=== PATIENT | male | born 1950 | race Hispanic/Latino ===

== ENCOUNTER 2020-12-26 05:27 | Emergency (ER) | payer OTHER ==
[~2020-12-26] VITALS: Ht 172.7 cm; Wt 84.8 kg
[2020-12-26] MEDS ORDERED: NITROGLYCERIN 2% OINT 1 GM PKT TOP STA (05:31)
[2020-12-26] MEDS ORDERED: ASPIRIN 81 MG CHEW TAB PO STA (05:31)
[2020-12-26] MEDS ORDERED: IBUPROFEN 600 MG TAB PO STA (05:43)
[2020-12-26 05:51] LABS: BASOPHILS % 0.3 % (0.0-1.0); HEMATOCRIT 44.7 % (38.2-49.6); HEMOGLOBIN 15.1 g/dL (14.0-18.0); LYMPHOCYTES # (AUTO) 0.7 (1.0-3.2); LYMPHOCYTES % 6.8 % (18.0-39.1); MEAN CORPUSCULAR HEMOGLOBIN 32.5 pg (28-32); MEAN CORPUSCULAR HGB CONC 33.8 g/dL (31-35); MEAN CORPUSCULAR VOLUME 96.3 fL (81-99); MONOCYTES # (AUTO) 0.6 (0.2-0.8); MONOCYTES % 5.6 % (4.4-11.3); NEUTROPHILS % 86.9 % (38.7-80.0); PLATELET COUNT 198 x10e3/uL (140-360); RED BLOOD COUNT 4.64 x10e6/uL (4.3-5.7); RED CELL DISTRIBUTION WIDTH 12.1 % (11.7-14.4)
[2020-12-26 06:03] LABS: PARTIAL THROMBOPLASTIN TIME 26.6 seconds (23.8-35.5)
[2020-12-26 06:13] LABS: ALBUMIN 4.1 g/dL (3.5-5.0); ALBUMIN/GLOBULIN RATIO 1.2 (0.8-2.0); ANION GAP 17.8 mmol/L (8-16); CALCIUM 8.7 mg/dL (8.4-10.2); CREATININE, SERUM 0.94 mg/dL (0.72-1.25); POTASSIUM 3.8 mmol/L (3.5-5.1)
[2020-12-26 06:14] LABS: CREATINE KINASE MB 0.8 ng/mL (0-5.0)
[2020-12-26 06:48] VITALS: BP 123/66
[2020-12-26] MEDS ORDERED: OMEPRAZOLE40 MG PO (06:49)
== END 2020-12-26 06:58 | disposition home or self-care (01) ==
LOC: ER 05:32
DX: R07.9 Chest pain, unspecified (principal); I10 Essential (primary) hypertension
CPT/HCPCS: 36415; 71045; 80053; 82550; 82553; 83880; 84484; 85025; 85610; 85730; 93005; 99284

== ENCOUNTER 2021-06-27 23:48 | Inpatient (IN) | payer MEDICARE ==
[~2021-06-27] VITALS: Ht 170.2 cm; Wt 90.3 kg
[~2021-06-27 23:48] MED LIST: OMEPRAZOLE40 MG PO
[2021-06-28] VITALS (7 sets, daily range): BP systolic 117–138; BP diastolic 64–75
[2021-06-28 00:13] LABS: BASOPHILS # (AUTO) 0.1 (0.0-0.1); BASOPHILS % 0.6 % (0.0-1.0); EOSINOPHILS % 0.1 % (0.0-6.0); HEMATOCRIT 41.3 % (38.2-49.6); HEMOGLOBIN 14.3 g/dL (14.0-18.0); LYMPHOCYTES # (AUTO) 0.9 (1.0-3.2); LYMPHOCYTES % 5.4 % (18.0-39.1); MEAN CORPUSCULAR HEMOGLOBIN 32.1 pg (28-32); MEAN CORPUSCULAR HGB CONC 34.6 g/dL (31-35); MEAN CORPUSCULAR VOLUME 92.8 fL (81-99); MONOCYTES # (AUTO) 0.8 (0.2-0.8); MONOCYTES % 4.6 % (4.4-11.3); NEUTROPHILS # (AUTO) 14.5 (2.1-6.9); NEUTROPHILS % 88.9 % (38.7-80.0); PLATELET COUNT 101 x10e3/uL (140-360); RED BLOOD COUNT 4.45 x10e6/uL (4.3-5.7); RED CELL DISTRIBUTION WIDTH 12.6 % (11.7-14.4)
[2021-06-28] MEDS ORDERED: BELLADONNA ALK/PHENOBARBITAL 5 ML UDC PO ONE (00:15)
[2021-06-28] MEDS ORDERED: MAGNESIUM/ALUMINUM/SIMETHICONE 30 ML UDC PO ONE (00:15)
[2021-06-28] MEDS ORDERED: LIDOCAINE VISC 2% SOLN 15 ML UDC PO ONE (00:15)
[2021-06-28 00:27] LABS: AMYLASE 29 U/L (25-125); LIPASE 20 U/L (8-78)
[2021-06-28 00:31] LABS: ALBUMIN 2.8 g/dL (3.5-5.0); ALBUMIN/GLOBULIN RATIO 0.7 (0.8-2.0); ANION GAP 15.2 mmol/L (8-16); CALCIUM 8.5 mg/dL (8.4-10.2); CREATININE, SERUM 1.15 mg/dL (0.72-1.25); POTASSIUM 3.2 mmol/L (3.5-5.1)
[2021-06-28 00:37] LABS: CREATINE KINASE MB 0.4 ng/mL (0-5.0)
[2021-06-28] MEDS ORDERED: ACETAMINOPHEN 325 MG TAB PO ONE (01:30)
[2021-06-28] MEDS ORDERED: SODIUM CHLORIDE 0.9% 1000ML 1,000 ML IV ONE ×2 (01:30→01:45)
[2021-06-28] MEDS ORDERED: SODIUM CHLORIDE 0.9% 500ML 500 ML IV ONE (01:45)
[2021-06-28 02:14] LABS: CLARITY,URINE CLEAR (CLEAR); COLOR,URINE YELLOW (YELLOW); KETONES,URINE 1+ (NEGATIVE); LEUKOCYTE ESTERASE ,URINE NEGATIVE (NEGATIVE); NITRITE,URINE NEGATIVE (NEGATIVE); PROTEIN,URINE DIPSTICK TRACE (NEGATIVE); URINE UROBILINOGEN 0.2 mg/dL (0.2 - 1)
[2021-06-28 02:18] LABS: BACTERIA,URINE FEW /HPF; EPITHELIAL CELLS,URINE RARE /LPF; WBC,URINE (MAN) 0-5 /HPF (0-5)
[2021-06-28] MEDS ORDERED: ONDANSETRON HCL INJ 2MG/ML 2ML 2 MG/ML VIAL IV PRN (03:45)
[2021-06-28] MEDS: Morphine 4mg Syringe 4 MG/ML INJ IV PRN (04:24)
[2021-06-28] MEDS: SODIUM CHLORIDE 0.9% 1000ML 1,000 ML IV SCH ×3 (05:57→19:45)
[2021-06-28] MEDS ORDERED: IOPAMIDOL 370 MG/ML 100 ML INFUS..BTL INJ ONE (06:25)
[2021-06-28] MEDS ORDERED: POTASSIUM CHLORIDE 20MEQ/100ML 100 ML IV ONE (10:15)
[2021-06-28] MEDS ORDERED: POTASSIUM CHLORIDE 10MEQ/100ML 100 ML IV SCH (10:30)
[2021-06-28 10:34] LABS: CHOL/HDL RATIO 6.1 (3.9-4.7)
[2021-06-28] MEDS: POTASSIUM CHLORIDE IV SCH ×3 (10:41→13:49)
[2021-06-28] MEDS: SODIUM CHLORIDE 0.9% IV SCH ×3 (10:41→13:49)
[2021-06-28] MEDS ORDERED: GLUCAGON FOR INJ 1 MG VIAL ONE (11:54)
[2021-06-28] MEDS ORDERED: GLYCOPYRROLATE INJ 0.2 MG/ML VIAL ONE (11:54)
[2021-06-28] MEDS ORDERED: SUCCINYLCHOLINE CHLORIDE 20 MG/ML 10ML VIAL ONE (11:54)
[2021-06-28] MEDS ORDERED: PROPOFOL IV EMULSION 10 MG/ML 20 ML VIAL ONE (11:54)
[2021-06-28] MEDS ORDERED: LIDOCAINE HCL 2% LOCAL INJ 5 ML SDV VIAL INJ ONE (11:54)
[2021-06-28] MEDS ORDERED: POVIDONE IODINE 0.05% 0.05 % ML PO ONE (11:54)
[2021-06-28] MEDS: METRONIDAZOLE 500MG/NS 100ML 100 ML IV SCH ×3 (13:49→23:07)
[2021-06-28] MEDS ORDERED: ATENOLOL50 MG PO (13:52)
[2021-06-28] MEDS ORDERED: SIMVASTATIN40 MG PO (13:52)
[2021-06-28] MEDS ORDERED: FENTANYL CITRATE/PF 100MCG/2 ML INJ ONE (14:06)
[2021-06-28] MEDS ORDERED: INDOMETHACIN 50 MG SUPP.RECT RC ONE (15:01)
[2021-06-28] MEDS ORDERED: IOPAMIDOL 300MG/ML 50ML INFUS..BTL IV ONE (15:01)
[2021-06-28] MEDS ORDERED: LIDOCAINE HCL 4% 50 ML BTL ONE (15:01)
[2021-06-28] MEDS: FAMOTIDINE 20 MG/2 ML VIAL IV SCH (17:00)
[2021-06-28] MEDS: MELATONIN 3 MG TAB PO PRN (22:00)
[2021-06-29] VITALS (8 sets, daily range): BP systolic 130–157; BP diastolic 59–78
[2021-06-29] MEDS: SODIUM CHLORIDE 0.9% 1000ML 1,000 ML IV SCH ×3 (03:23→21:09)
[2021-06-29] MEDS: METRONIDAZOLE 500MG/NS 100ML 100 ML IV SCH ×3 (05:04→17:49)
[2021-06-29 06:47] LABS: BASOPHILS # (AUTO) 0.1 (0.0-0.1); BASOPHILS % 0.7 % (0.0-1.0); EOSINOPHILS # (AUTO) 0.1 (0.0-0.4); EOSINOPHILS % 0.7 % (0.0-6.0); HEMATOCRIT 34.6 % (38.2-49.6); HEMOGLOBIN 11.8 g/dL (14.0-18.0); LYMPHOCYTES # (AUTO) 1.1 (1.0-3.2); LYMPHOCYTES % 10.7 % (18.0-39.1); MEAN CORPUSCULAR HEMOGLOBIN 31.8 pg (28-32); MEAN CORPUSCULAR HGB CONC 34.1 g/dL (31-35); MEAN CORPUSCULAR VOLUME 93.3 fL (81-99); MONOCYTES # (AUTO) 1.2 (0.2-0.8); MONOCYTES % 12.2 % (4.4-11.3); NEUTROPHILS # (AUTO) 7.5 (2.1-6.9); NEUTROPHILS % 74.3 % (38.7-80.0); PLATELET COUNT 79 x10e3/uL (140-360); RED BLOOD COUNT 3.71 x10e6/uL (4.3-5.7); RED CELL DISTRIBUTION WIDTH 13.2 % (11.7-14.4)
[2021-06-29 07:29] LABS: ALBUMIN/GLOBULIN RATIO 0.6 (0.8-2.0); ANION GAP 13.3 mmol/L (8-16); CALCIUM 7.5 mg/dL (8.4-10.2); CREATININE, SERUM 0.8 mg/dL (0.72-1.25); POTASSIUM 3.3 mmol/L (3.5-5.1)
[2021-06-29] MEDS: FAMOTIDINE 20 MG/2 ML VIAL IV SCH ×2 (08:44→17:12)
[2021-06-29 10:09] LABS: INR 0.87; PROTHROMBIN TIME 12.6 seconds (11.9-14.5)
[2021-06-29] MEDS ORDERED: POTASSIUM CHLORIDE 20 MEQ TAB CR PO ONE (11:30)
[2021-06-29] MEDS: MELATONIN 3 MG TAB PO PRN (22:00)
[2021-06-30] VITALS (7 sets, daily range): BP systolic 137–165; BP diastolic 71–86
[2021-06-30] MEDS: METRONIDAZOLE 500MG/NS 100ML 100 ML IV SCH ×4 (00:15→17:00)
[2021-06-30] MEDS: SODIUM CHLORIDE 0.9% 1000ML 1,000 ML IV SCH ×3 (04:00→19:45)
[2021-06-30 06:00] LABS: ALBUMIN 2.2 g/dL (3.5-5.0); ALBUMIN/GLOBULIN RATIO 0.7 (0.8-2.0); ANION GAP 9.1 mmol/L (8-16); CALCIUM 7.7 mg/dL (8.4-10.2); CREATININE, SERUM 0.85 mg/dL (0.72-1.25); POTASSIUM 4.1 mmol/L (3.5-5.1)
[2021-06-30] MEDS: FAMOTIDINE 20 MG/2 ML VIAL IV SCH ×2 (08:51→17:45)
[2021-06-30] MEDS: MELATONIN 3 MG TAB PO PRN (22:08)
[2021-07-01] VITALS: BP 154/77
[2021-07-01] MEDS: SODIUM CHLORIDE 0.9% 1000ML 1,000 ML IV SCH ×3 (00:54→18:56)
[2021-07-01] MEDS: METRONIDAZOLE 500MG/NS 100ML 100 ML IV SCH ×5 (00:54→23:47)
[2021-07-01 04:00] VITALS: BP 168/78
[2021-07-01 08:00] VITALS: BP 148/76
[2021-07-01 08:19] VITALS: BP 148/76
[2021-07-01] MEDS: FAMOTIDINE 20 MG/2 ML VIAL IV SCH ×2 (09:06→17:46)
[2021-07-01 11:56] VITALS: BP 165/85
[2021-07-01] MEDS ORDERED: FENTANYL CITRATE/PF 100MCG/2 ML INJ ONE (12:38)
[2021-07-01] MEDS ORDERED: MIDAZOLAM HCL 2 MG/2 ML VIAL ONE (12:38)
[2021-07-01] MEDS ORDERED: DEXAMETHASONE SOD PHOS INJ 4 MG/ML SDV ONE (13:24)
[2021-07-01] MEDS ORDERED: PROPOFOL IV EMULSION 10 MG/ML 20 ML VIAL ONE (13:24)
[2021-07-01] MEDS ORDERED: ROCURONIUM BROMIDE 10 MG/ML 5ML VIAL IV ONE (13:24)
[2021-07-01] MEDS ORDERED: LIDOCAINE HCL 2% LOCAL INJ 5 ML SDV VIAL INJ ONE (13:24)
[2021-07-01] MEDS ORDERED: ONDANSETRON HCL INJ 2MG/ML 2ML 2 MG/ML VIAL ONE (13:24)
[2021-07-01] MEDS ORDERED: POVIDONE IODINE 0.05% 0.05 % ML PO ONE (13:24)
[2021-07-01] MEDS ORDERED: SEVOFLURANE INHAL SOLN 250 ML PEN BTL ONE (13:24)
[2021-07-01] MEDS ORDERED: BUPIVACAINE 0.25% 30ML SDV ONE (15:11)
[2021-07-01] MEDS ORDERED: ACETAMINOPHEN 1000 MG/100 ML 100 ML IV ONE (15:13)
[2021-07-01] MEDS ORDERED: IOPAMIDOL 300MG/ML 50ML INFUS..BTL IV ONE ×2 (15:15→15:30)
[2021-07-01] MEDS ORDERED: GLUCAGON FOR INJ 1 MG VIAL ONE ×2 (15:30→15:31)
[2021-07-01 20:00] VITALS: BP 157/74
[2021-07-01] MEDS: Morphine 4mg Syringe 4 MG/ML INJ IV PRN (20:49)
[2021-07-02] VITALS: BP 161/74
[2021-07-02] MEDS: SODIUM CHLORIDE 0.9% 1000ML 1,000 ML IV SCH ×3 (04:01→21:47)
[2021-07-02 04:51] VITALS: BP 161/74
[2021-07-02] MEDS: METRONIDAZOLE 500MG/NS 100ML 100 ML IV SCH ×3 (05:36→18:00)
[2021-07-02 05:42] LABS: ALBUMIN 2.3 g/dL (3.5-5.0); ALBUMIN/GLOBULIN RATIO 0.6 (0.8-2.0); ANION GAP 15.1 mmol/L (8-16); CALCIUM 7.5 mg/dL (8.4-10.2); CREATININE, SERUM 0.85 mg/dL (0.72-1.25); POTASSIUM 4.1 mmol/L (3.5-5.1)
[2021-07-02 08:00] VITALS: BP 149/67
[2021-07-02] MEDS ORDERED: ONDANSETRON ODT4 MG PO (09:13)
[2021-07-02] MEDS ORDERED: CEPHALEXIN500 MG PO (09:13)
[2021-07-02] MEDS ORDERED: ONDANSETRON HCL 4 MG ORAL DISINTEGRATING TAB PO PRN (14:30)
[2021-07-02 20:00] VITALS: BP 149/71
[2021-07-03 00:11] VITALS: BP 150/76
[2021-07-03] MEDS: METRONIDAZOLE 500MG/NS 100ML 100 ML IV SCH ×2 (00:23→05:15)
[2021-07-03 01:02] VITALS: BP 150/76
[2021-07-03] MEDS: Morphine 4mg Syringe 4 MG/ML INJ IV PRN (01:15)
[2021-07-03 04:00] VITALS: BP 157/79
[2021-07-03] MEDS: SODIUM CHLORIDE 0.9% 1000ML 1,000 ML IV SCH ×2 (05:56→11:45)
[2021-07-03] MEDS ORDERED: METRONIDAZOLE500 MG PO (06:41)
[2021-07-03 07:37] LABS: BASOPHILS # (AUTO) 0.1 (0.0-0.1); BASOPHILS % 0.6 % (0.0-1.0); EOSINOPHILS # (AUTO) 0.1 (0.0-0.4); EOSINOPHILS % 1.2 % (0.0-6.0); HEMATOCRIT 34.7 % (38.2-49.6); HEMOGLOBIN 11.9 g/dL (14.0-18.0); LYMPHOCYTES # (AUTO) 1.6 (1.0-3.2); MEAN CORPUSCULAR HEMOGLOBIN 32.4 pg (28-32); MEAN CORPUSCULAR HGB CONC 34.3 g/dL (31-35); MEAN CORPUSCULAR VOLUME 94.6 fL (81-99); MONOCYTES # (AUTO) 0.8 (0.2-0.8); NEUTROPHILS # (AUTO) 6.8 (2.1-6.9); NEUTROPHILS % 68.9 % (38.7-80.0); PLATELET COUNT 234 x10e3/uL (140-360); RED BLOOD COUNT 3.67 x10e6/uL (4.3-5.7); RED CELL DISTRIBUTION WIDTH 13.6 % (11.7-14.4)
[2021-07-03 08:00] VITALS: BP 166/75
[2021-07-03 08:02] LABS: ALBUMIN 2.2 g/dL (3.5-5.0); ANION GAP 13.5 mmol/L (8-16); BILIRUBIN,DIRECT 0.7 mg/dL (0.0-0.5); CALCIUM 7.2 mg/dL (8.4-10.2); CREATININE, SERUM 0.72 mg/dL (0.72-1.25); POTASSIUM 3.5 mmol/L (3.5-5.1)
[2021-07-03] MEDS ORDERED: METRONIDAZOLE 500 MG TAB PO SCH (12:45)
[2021-07-03] MEDS ORDERED: PANTOPRAZOLE SOD 40 MG TABEC PO SCH (16:30)
== END 2021-07-03 15:13 | disposition home or self-care (01) | DRG 854 ==
LOC: ER 06-28 → ERHOLD 06-28 03:49 → MED/SURG2 06-28 05:37
PROVIDERS: ADMIT Internal Medicine; ATTEND Internal Medicine
PROC: 0FJD8ZZ Inspection of Pancreatic Duct, Via Natural or Artificial Opening Endoscopic (ICD-10-PCS; 2021-06-28)
PROC: 0FC94ZZ Extirpation of Matter from Common Bile Duct, Percutaneous Endoscopic Approach (ICD-10-PCS; 2021-07-01)
PROC: 0F794ZZ Dilation of Common Bile Duct, Percutaneous Endoscopic Approach (ICD-10-PCS; 2021-07-01)
PROC: 0FT44ZZ Resection of Gallbladder, Percutaneous Endoscopic Approach (ICD-10-PCS; principal; 2021-07-01 14:30)
DX: R78.81 Bacteremia (principal); K80.42 Calculus of bile duct with acute cholecystitis without obstruction; I10 Essential (primary) hypertension; K21.9 Gastro-esophageal reflux disease without esophagitis; E78.5 Hyperlipidemia, unspecified; E78.00 Pure hypercholesterolemia, unspecified; F17.210 Nicotine dependence, cigarettes, uncomplicated; E87.6 Hypokalemia; F10.10 Alcohol abuse, uncomplicated; B96.20 Unspecified Escherichia coli [E. coli] as the cause of diseases classified elsewhere; K57.10 Diverticulosis of small intestine without perforation or abscess without bleeding; Z20.822 Contact with and (suspected) exposure to COVID-19
CPT/HCPCS: 36415; 43260; 71045; 74177; 74181; 74300; 76705; 80048; 80053; 80061; 80076; 81001; 82150; 82550; 82553; 83036; 83605; 83690; 84132; 84484; 85025; 85610; 87040; 87071; 87186; 87205; 88304; 93005; 96361; 99284; C1713; J0330; J0694; J1100; J1610; J2001; J2250; J2270; J2405; J2543; J3010; J7030; J7040; Q9967; U0002

== ENCOUNTER 2024-08-11 06:48 | Emergency (ER) | payer MEDICARE ==
[~2024-08-11] VITALS: Ht 172.7 cm; Wt 90.7 kg
[~2024-08-11 06:48] MED LIST changes: +ATENOLOL50 MG PO; +CEPHALEXIN500 MG PO; +METRONIDAZOLE500 MG PO; +ONDANSETRON ODT4 MG PO; +SIMVASTATIN40 MG PO
[2024-08-11 06:50] VITALS: TEMP 98.1
[2024-08-11 07:39] LABS: BASOPHILS % 0.4 % (0.0-1.0); EOSINOPHILS # (AUTO) 0.2 (0.0-0.4); EOSINOPHILS % 1.6 % (0.0-6.0); HEMATOCRIT 42.6 % (38.2-49.6); HEMOGLOBIN 14.8 g/dL (14.0-18.0); LYMPHOCYTES # (AUTO) 1.9 (1.0-3.2); LYMPHOCYTES % 18.6 % (18.0-39.1); MEAN CORPUSCULAR HEMOGLOBIN 31.6 pg (28-32); MEAN CORPUSCULAR HGB CONC 34.7 g/dL (31-35); MEAN CORPUSCULAR VOLUME 90.8 fL (81-99); MONOCYTES # (AUTO) 1.2 (0.2-0.8); MONOCYTES % 11.7 % (4.4-11.3); NEUTROPHILS # (AUTO) 6.8 (2.1-6.9); NEUTROPHILS % 66.8 % (38.7-80.0); PLATELET COUNT 281 x10e3/uL (140-360); RED BLOOD COUNT 4.69 x10e6/uL (4.3-5.7); RED CELL DISTRIBUTION WIDTH 12.1 % (11.7-14.4); WHITE BLOOD COUNT 10.15 x10e3/uL (4.8-10.8)
[2024-08-11 07:51] LABS: ALANINE AMINOTRANSFERASE 45 IU/L (0-55); ALBUMIN 2.9 g/dL (3.5-5.0); ALBUMIN/GLOBULIN RATIO 0.6 (0.8-2.0); ALKALINE PHOSPHATASE 124 IU/L (40-150); ANION GAP 20.4 mmol/L (8-16); BLOOD UREA NITROGEN 15 mg/dL (7-26); BUN/CREATININE RATIO 15 (6-25); CALCIUM 8.9 mg/dL (8.4-10.2); CARBON DIOXIDE 18 mmol/L (22-29); CHLORIDE 97 mmol/L (98-107); EST GLOMERULAR FILTRATION RATE 79 ML/MIN (>=60); GLUCOSE 127 mg/dL (74-118); MAGNESIUM 2.5 MG/DL (1.3-2.1); POTASSIUM 3.4 mmol/L (3.5-5.1); SODIUM 132 mmol/L (136-145); TOTAL PROTEIN 7.9 g/dL (6.5-8.1)
[2024-08-11 07:58] LABS: TROPONIN I < 0.001 ng/mL (0-0.300)
[2024-08-11] MEDS: SODIUM CHLORIDE 0.9% 1000ML 1,000 ML IV STA (08:04)
[2024-08-11] MEDS: ONDANSETRON HCL INJ 2MG/ML 2ML 2 MG/ML VIAL IV STA (08:06)
[2024-08-11] MEDS: HYDROCODONE/APAP 5MG-325MG TAB PO ONE (08:08)
[2024-08-11] MEDS: ACETAMINOPHEN 325 MG TAB PO ONE (08:08)
[2024-08-11 08:22] LABS: CLARITY,URINE CLEAR (CLEAR); COLOR,URINE YELLOW (YELLOW); GLUCOSE, URINE NEGATIVE (NEGATIVE); KETONES,URINE 1+ (NEGATIVE); LEUKOCYTE ESTERASE ,URINE NEGATIVE (NEGATIVE); NITRITE,URINE NEGATIVE (NEGATIVE); PH,URINE 6 (5 - 7); PROTEIN,URINE DIPSTICK NEGATIVE (NEGATIVE)
[2024-08-11 08:23] LABS: BILIRUBIN,URINE NEGATIVE (NEGATIVE)
[2024-08-11 08:34] LABS: BACTERIA,URINE MODERATE /HPF; EPITHELIAL CELLS,URINE RARE /LPF
[2024-08-11] MEDS ORDERED: ONDANSETRON ODT4 MG PO (08:43)
[2024-08-11] MEDS ORDERED: CEFDINIR300 MG PO (08:43)
[2024-08-11 08:45] VITALS: PULSE 66; RESP 16; O2SAT 99
== END 2024-08-11 09:00 | disposition home or self-care (01) ==
LOC: ER 06:53
DX: R11.0 Nausea (principal); B34.9 Viral infection, unspecified; N39.0 Urinary tract infection, site not specified; E86.0 Dehydration; R53.83 Other fatigue; I10 Essential (primary) hypertension; E78.5 Hyperlipidemia, unspecified; E78.00 Pure hypercholesterolemia, unspecified; K21.9 Gastro-esophageal reflux disease without esophagitis
CPT/HCPCS: 36415; 71045; 80053; 81001; 83735; 84484; 85025; 87086; 93005; 99284; J2405; J7030